=== PATIENT | female | born 1965 | race Caucasian/White ===

== ENCOUNTER → 2017-06-15 | Outpatient (CLI) | payer MEDICAID ==
[~2017-06-15] MED LIST: NAPR375T PO; [UNRECOGNIZED DRUG - REMARK]
== END | disposition home or self-care (01) ==
LOC: CVU 15:20
PROVIDERS: ATTEND Internal Medicine Cardiovascular Disease
DX: I51.7 Cardiomegaly (principal)
CPT/HCPCS: 93306

== ENCOUNTER → 2018-04-23 | Outpatient (CLI) | payer MEDICARE, MEDICAID ==
[~2018-04-23] MED LIST changes: +AMIT25TA PO; +FLUT1BLS3 INH; +FURO40TA6 PO; +GABA300C10 PO; +LEVA15HF4 INH; +LEVO150T5 PO; +LOSA50TA6 PO; +Oxygen; +ROPI3TAB2 PO; +SPIR25TA5 PO; +TIZA2TAB PO; +Vita Fusion PO
[2018-04-23 16:05] LABS: BASOPHILS # (AUTO) 0.09 x10^3/uL (0-0.1); BASOPHILS % (AUTO) 1 % (0-1); EOSINOPHILS # (AUTO) 0.09 x10^3/uL (0-0.4); EOSINOPHILS % (AUTO) 1 % (1-7); LYMPHOCYTES # (AUTO) 2.75 x10^3/uL (1-3.4); LYMPHOCYTES % (AUTO) 23 % (22-44); MD NO; MEAN CORPUSCULAR HEMOGLOBIN 29.5 pg (27.0-34.8); MEAN CORPUSCULAR HGB CONC 33.1 g/dL (32.4-35.8); MEAN CORPUSCULAR VOLUME 88.9 fL (80-100); MEAN PLATELET VOLUME 8.9 fL (7.4-10.4); MONOCYTES # (AUTO) 0.56 x10^3/uL (0.2-0.8); MONOCYTES % (AUTO) 5 % (2-9); NEUTROPHILS # (AUTO) 8.59 x10^3/uL (1.8-6.8); NEUTROPHILS % (AUTO) 71 % (42-75); PLATELET COUNT 300 x10^3/uL (130-400); RED CELL DISTRIBUTION WIDTH 15.7 % (9.6-15.2)
[2018-04-23 16:13] LABS: ANION GAP 7 mmol/L (5-15); CHLORIDE 104 mmol/L (98-107)
[2018-04-23 16:14] LABS: ALANINE AMINOTRANSFERASE 52 U/L (12-78); ALBUMIN 3.6 g/dL (3.4-5.0); CALCIUM 9.8 mg/dL (8.5-10.1); CREATININE 0.93 mg/dL (0.55-1.02); INTERNATIONAL NORMALIZED RATIO 1.09 (0.93-1.1); PROTHROMBIN TIME 11.2 Seconds (9.6-11.5)
[2018-04-23 16:16] LABS: ALKALINE PHOSPHATASE 91 U/L (45-117); BILIRUBIN,TOTAL 0.5 mg/dL (0.2-1.0); TOTAL PROTEIN 8.3 g/dL (6.4-8.2)
== END | disposition home or self-care (01) ==
LOC: STAR 14:47
PROVIDERS: ATTEND Surgery
DX: Z01.818 Encounter for other preprocedural examination (principal)
CPT/HCPCS: 36415; 71046; 80053; 85025; 85610; 93005

== ENCOUNTER 2018-04-27 12:17 | Inpatient (IN) | payer MEDICARE, MEDICAID ==
[~2018-04-27] VITALS: Ht 160 cm; Wt 162.3 kg
[2018-04-27 13:18] VITALS: BP 136/83
[2018-04-27] MEDS ORDERED: LACTATED RINGERS 1,000 ML IV SCH (13:27)
[2018-04-27] MEDS ORDERED: ACETAMINOPHEN 500 MG TABLET PO ONE (13:30)
[2018-04-27] MEDS ORDERED: GABAPENTIN 300 MG CAPSULE PO ONE (13:30)
[2018-04-27] MEDS ORDERED: MIDAZOLAM 1 MG/ML, 2ML ONE (13:52)
[2018-04-27] MEDS ORDERED: FENTANYL PF 100 MCG/2ML ONE ×4 (13:52→16:46)
[2018-04-27] MEDS ORDERED: PROPOFOL 10 MG/ML, 20ML ONE (13:55)
[2018-04-27] MEDS ORDERED: NEOSTIGMINE 1 MG/ML, 10ML ONE (13:55)
[2018-04-27] MEDS ORDERED: ROCURONIUM 10MG/ML,5ML ONE (13:55)
[2018-04-27] MEDS ORDERED: GLYCOPYRROLATE 0.4 MG/2 ML, 2ML ONE (13:56)
[2018-04-27] MEDS ORDERED: CEFAZOLIN 1,000 MG ONE ×3 (13:57)
[2018-04-27] MEDS ORDERED: DEXAMETHASONE 4 MG/ML, 1ML ONE ×2 (13:58)
[2018-04-27] MEDS ORDERED: ONDANSETRON ODT 8 MG PO ONE (14:00)
[2018-04-27] MEDS ORDERED: OxyconTIN ER 10 MG TAB.ER PO ONE (14:00)
[2018-04-27] MEDS ORDERED: SCOPOLAMINE PATCH, 1.5MG PATCH.TD72 TD ONE (14:00)
[2018-04-27] MEDS ORDERED: BUPIVACAINE/PF 0.5% ONE (14:12)
[2018-04-27] MEDS ORDERED: METHYLENE BLUE 10 MG/ML 10ML ONE (14:13)
[2018-04-27] MEDS ORDERED: EPINEPHRINE 1 MG/ML, 1ML ONE (14:13)
[2018-04-27] MEDS ORDERED: FENTANYL PF 100 MCG/2ML IV PRN (14:30)
[2018-04-27] MEDS ORDERED: ONDANSETRON 2MG/ML, 2ML IV PRN (14:30)
[2018-04-27] MEDS ORDERED: MEPERIDINE/PF 25MG/0.5ML IVPush PRN (14:30)
[2018-04-27] MEDS ORDERED: LABETALOL 5MG/ML, 20ML IV PRN (14:30)
[2018-04-27] MEDS ORDERED: PROMETHAZINE 25 MG/ML, 1ML IV PRN (14:30)
[2018-04-27] MEDS ORDERED: ONDANSETRON ODT 8 MG PO PRN (14:30)
[2018-04-27] MEDS ORDERED: PROMETHAZINE 25 MG SUPP PR PRN (14:30)
[2018-04-27] MEDS ORDERED: OXYcodone 5 MG/5 ML ORAL.SOL UDC PO PRN (14:30)
[2018-04-27] MEDS ORDERED: ALBUTEROL SULFATE 2.5 MG/3 ML NPPB PRN ×2 (14:30→20:00)
[2018-04-27] MEDS ORDERED: hydrALAzine 20 MG/ML, 1ML IV PRN (14:30)
[2018-04-27] MEDS ORDERED: HYDROmorphone 1 MG/ML, 1ML IV PRN (14:30)
[2018-04-27] MEDS ORDERED: PROMETHAZINE 12.5 MG SUPP PR PRN (14:30)
[2018-04-27] MEDS ORDERED: BUPIVACAINE/EPI 0.5% 1:200K INFIL ONE (15:25)
[2018-04-27] MEDS ORDERED: EPINEPHRINE 1 MG/ML, 1ML INFIL ONE (15:26)
[2018-04-27] MEDS: POTASSIUM CHLORIDE 20 MEQ in LACTATED RINGERS 1,000 ML IV SCH (15:55)
[2018-04-27] MEDS ORDERED: HYDROmorphone PCA 30 MG/30 ML IV PRN (16:00)
[2018-04-27] MEDS ORDERED: ONDANSETRON 2MG/ML, 2ML IVPush PRN (16:00)
[2018-04-27] MEDS ORDERED: DIPHENHYDRAMINE 50 MG/ML, 1ML IV PRN (16:00)
[2018-04-27] MEDS ORDERED: OXYcodone 5 MG/5 ML ORAL.SOL UDC ONE (16:47)
[2018-04-27] MEDS ORDERED: TEMPLATE NON-FORMULARY MED. (Levalbuterol Tartrate** (Xopenex Hfa**) 1 PUFF) INH SCH (19:30)
[2018-04-27 19:31] VITALS: BP 123/71
[2018-04-27] MEDS: HYDROmorphone 2 MG/ML, 1ML IVPush PRN (20:08)
[2018-04-27] MEDS: AMITRIPTYLINE 25 MG TABLET PO SCH (20:08)
[2018-04-28 00:18] VITALS: BP 106/65
[2018-04-28] MEDS: HYDROmorphone 2 MG/ML, 1ML IVPush PRN ×6 (02:25→23:58)
[2018-04-28] MEDS: POTASSIUM CHLORIDE 20 MEQ in LACTATED RINGERS 1,000 ML IV SCH (02:25)
[2018-04-28 04:17] VITALS: BP 118/67
[2018-04-28 05:47] LABS: ALBUMIN 3.2 g/dL (3.4-5.0); ANION GAP 5 mmol/L (5-15); CALCIUM 9.3 mg/dL (8.5-10.1); CHLORIDE 106 mmol/L (98-107)
[2018-04-28 05:50] LABS: BASOPHILS # (AUTO) 0.01 x10^3/uL (0-0.1); BASOPHILS % (AUTO) 0 % (0-1); EOSINOPHILS % (AUTO) 0 % (1-7); LYMPHOCYTES # (AUTO) 1.44 x10^3/uL (1-3.4); LYMPHOCYTES % (AUTO) 11 % (22-44); MD NO; MEAN CORPUSCULAR HEMOGLOBIN 29.9 pg (27.0-34.8); MEAN CORPUSCULAR HGB CONC 33.1 g/dL (32.4-35.8); MEAN CORPUSCULAR VOLUME 90.2 fL (80-100); MEAN PLATELET VOLUME 9.6 fL (7.4-10.4); MONOCYTES # (AUTO) 0.41 x10^3/uL (0.2-0.8); MONOCYTES % (AUTO) 3 % (2-9); NEUTROPHILS # (AUTO) 11.18 x10^3/uL (1.8-6.8); NEUTROPHILS % (AUTO) 86 % (42-75); PLATELET COUNT 288 x10^3/uL (130-400); RED BLOOD COUNT 4.37 x10^6/uL (3.82-5.3); RED CELL DISTRIBUTION WIDTH 15.7 % (9.6-15.2)
[2018-04-28 05:52] LABS: ALANINE AMINOTRANSFERASE 96 U/L (12-78); ALKALINE PHOSPHATASE 88 U/L (45-117); BILIRUBIN,TOTAL 0.6 mg/dL (0.2-1.0); CREATININE 0.87 mg/dL (0.55-1.02); TOTAL PROTEIN 7.9 g/dL (6.4-8.2)
[2018-04-28] MEDS: ALBUTEROL/IPRATROPIUM 2.5MG/0.5MG, 3 ML NPPB SCH ×2 (07:00→11:50)
[2018-04-28 07:10] VITALS: BP 114/69
[2018-04-28] MEDS: FAMOTIDINE 20 MG/2 ML IVPush SCH (08:55)
[2018-04-28] MEDS: SPIRONOLACTONE 25 MG TABLET PO SCH (08:56)
[2018-04-28] MEDS: LOSARTAN 50MG TABLET PO SCH (08:56)
[2018-04-28] MEDS: GABAPENTIN 300 MG CAPSULE PO SCH (08:56)
[2018-04-28] MEDS: FUROSEMIDE 40 MG TABLET PO SCH (08:57)
[2018-04-28] MEDS: LACTATED RINGERS 1,000 ML IV SCH ×2 (10:03→17:10)
[2018-04-28] MEDS: LEVOTHYROXINE 150 MCG TABLET PO SCH (10:03)
[2018-04-28] MEDS: ROPINIROLE 1MG TABLET PO SCH (13:06)
[2018-04-28 14:00] VITALS: BP 136/84
[2018-04-28] MEDS: ENOXAPARIN 40 MG/0.4 ML SQ SCH (17:10)
[2018-04-28 19:06] VITALS: BP 111/72
[2018-04-28] MEDS: AMITRIPTYLINE 25 MG TABLET PO SCH (20:25)
[2018-04-29 01:10] VITALS: BP 103/60
[2018-04-29] MEDS: LACTATED RINGERS 1,000 ML IV SCH (01:11)
[2018-04-29] MEDS: HYDROmorphone 2 MG/ML, 1ML IVPush PRN (04:58)
[2018-04-29] MEDS: ENOXAPARIN 40 MG/0.4 ML SQ SCH (04:58)
[2018-04-29 07:23] VITALS: BP 109/68
[2018-04-29] MEDS: ROPINIROLE 1MG TABLET PO SCH (07:46)
[2018-04-29] MEDS: FUROSEMIDE 40 MG TABLET PO SCH (07:46)
[2018-04-29] MEDS: LEVOTHYROXINE 150 MCG TABLET PO SCH (07:46)
[2018-04-29] MEDS: LOSARTAN 50MG TABLET PO SCH (07:47)
[2018-04-29] MEDS: SPIRONOLACTONE 25 MG TABLET PO SCH (07:47)
[2018-04-29] MEDS: FAMOTIDINE 20 MG/2 ML IVPush SCH (07:47)
[2018-04-29] MEDS: GABAPENTIN 300 MG CAPSULE PO SCH (07:47)
[2018-04-29] MEDS ORDERED: OXYcodone 5 MG/5 ML ORAL.SOL UDC ONE (11:26)
[2018-04-29] MEDS ORDERED: OXYcodone ORAL.CONC 20 MG/ML PO PRN (11:30)
== END 2018-04-29 13:06 | disposition home or self-care (01) | DRG 421 ==
LOC: OUT 12:17 → ORIP 15:55 → 4NOR 18:26
PROVIDERS: ADMIT Surgery; ATTEND Surgery
PROC: 0DB64Z3 Excision of Stomach, Percutaneous Endoscopic Approach, Vertical (ICD-10-PCS; 2018-04-27)
PROC: 0FB04ZX Excision of Liver, Percutaneous Endoscopic Approach, Diagnostic (ICD-10-PCS; principal; 2018-04-27 14:30)
PROC: 5A09357 Assistance with Respiratory Ventilation, Less than 24 Consecutive Hours, Continuous Positive Airway Pressure (ICD-10-PCS; 2018-04-29)
DX: K76.0 Fatty (change of) liver, not elsewhere classified (principal); Z68.44 Body mass index [BMI] 60.0-69.9, adult; E66.01 Morbid (severe) obesity due to excess calories; E03.9 Hypothyroidism, unspecified; G25.81 Restless legs syndrome; I10 Essential (primary) hypertension; G47.33 Obstructive sleep apnea (adult) (pediatric); J44.9 Chronic obstructive pulmonary disease, unspecified; G47.00 Insomnia, unspecified; K66.8 Other specified disorders of peritoneum; Z87.891 Personal history of nicotine dependence; Z90.710 Acquired absence of both cervix and uterus; Z99.81 Dependence on supplemental oxygen; Z90.49 Acquired absence of other specified parts of digestive tract
CPT/HCPCS: 36415; 80053; 85025; 88307; 88313; 88342; C1729; J0171; J0690; J1100; J1170; J1650; J2250; J2405; J2704; J2710; J3010; J3480; J3490; Q0162; C1760; G0461; J7120; Q9968; S0028

== ENCOUNTER 2018-09-16 02:30 | Emergency (ER) | payer MEDICARE, MEDICAID ==
[~2018-09-16] VITALS: Ht 160 cm; Wt 136.9 kg
[~2018-09-16 02:30] MED LIST changes: -LOSA50TA6 PO; +LOSA50TA7 PO; -ROPI3TAB2 PO; +ROPI3TAB4 PO
[2018-09-16 02:32] VITALS: BP 123/70
[2018-09-16] MEDS ORDERED: ACETAMINOPHEN 500 MG TABLET PO ONE (03:00)
== END 2018-09-16 04:18 | disposition home or self-care (01) ==
LOC: ED 03:14
DX: S60.222A Contusion of left hand, initial encounter (principal); X58.XXXA Exposure to other specified factors, initial encounter; Y93.89 Activity, other specified; Y92.009 Unspecified place in unspecified non-institutional (private) residence as the place of occurrence of the external cause; Y99.8 Other external cause status
CPT/HCPCS: 99283

== ENCOUNTER 2018-09-27 14:21 | Outpatient (CLI) | payer MEDICARE, MEDICAID ==
[~2018-09-27 14:21] MED LIST changes: +LOSA50TA14 PO; -LOSA50TA7 PO
[2018-09-27] MEDS ORDERED: FLUT1BLS3 INH (14:56)
[2018-09-27] MEDS ORDERED: ALBU8.5H8 INH (14:56)
== END 2018-09-27 23:59 | disposition home or self-care (01) ==
LOC: STAR 14:21
PROVIDERS: ATTEND Plastic Surgery
DX: Z01.818 Encounter for other preprocedural examination (principal); R22.0 Localized swelling, mass and lump, head
CPT/HCPCS: 93005

== ENCOUNTER 2018-10-01 05:20 | Day surgery (SDC) | payer MEDICARE, MEDICAID ==
[2018-09-27 14:57] VITALS: BP 101/67
[~2018-10-01] VITALS: Ht 160 cm; Wt 136.6 kg
[~2018-10-01 05:20] MED LIST changes: +ALBU8.5H8 INH; -LOSA50TA14 PO; +LOSA50TA7 PO
[2018-10-01] MEDS ORDERED: LACTATED RINGERS 1,000 ML IV SCH (06:02)
[2018-10-01 06:07] VITALS: BP 101/67
[2018-10-01] MEDS ORDERED: BUPIVACAINE/PF 0.5% ONE (06:15)
[2018-10-01] MEDS ORDERED: BUPIVACAINE/PF-EPI 0.5% 1:200K ONE (06:15)
[2018-10-01] MEDS ORDERED: MIDAZOLAM 1 MG/ML, 2ML ONE (06:28)
[2018-10-01] MEDS ORDERED: FENTANYL PF 250 MCG/5ML ONE (06:28)
[2018-10-01] MEDS ORDERED: ONDANSETRON 2MG/ML, 2ML ONE (06:54)
[2018-10-01] MEDS ORDERED: CEFAZOLIN 1,000 MG ONE (06:54)
[2018-10-01] MEDS ORDERED: PROPOFOL 10 MG/ML, 20ML ONE (06:54)
[2018-10-01] MEDS ORDERED: ROCURONIUM 10MG/ML,5ML ONE (06:54)
[2018-10-01] MEDS ORDERED: SUCCINYLCHOLINE 20 MG/ML, 10ML ONE (06:54)
[2018-10-01] MEDS ORDERED: NEOSPORIN OINT, 15GM ONE (07:21)
[2018-10-01] MEDS ORDERED: SUGAMMADEX 200 MG/2 ML IVPush ONE (07:21)
[2018-10-01] MEDS ORDERED: PROMETHAZINE 25 MG/ML, 1ML IV PRN (07:30)
[2018-10-01] MEDS ORDERED: FENTANYL PF 100 MCG/2ML IV PRN (07:30)
[2018-10-01] MEDS ORDERED: hydrALAzine 20 MG/ML, 1ML IV PRN (07:30)
[2018-10-01] MEDS ORDERED: KETOROLAC 30 MG/1 ML IV PRN (07:30)
[2018-10-01] MEDS ORDERED: MEPERIDINE/PF 25MG/0.5ML IVPush PRN (07:30)
[2018-10-01] MEDS ORDERED: LABETALOL 5MG/ML, 20ML IV PRN (07:30)
[2018-10-01] MEDS ORDERED: METOCLOPRAMIDE 5 MG/ML, 2ML IV PRN (07:30)
[2018-10-01] MEDS ORDERED: OXYcodone 5 MG/5 ML ORAL.SOL UDC PO PRN (07:30)
[2018-10-01] MEDS ORDERED: ONDANSETRON 2MG/ML, 2ML IVPush PRN (07:30)
[2018-10-01] MEDS ORDERED: ALBUTEROL SULFATE 2.5 MG/3 ML NPPB PRN (07:30)
[2018-10-01] MEDS ORDERED: HYDROmorphone 1 MG/ML, 1ML IV PRN (07:30)
[2018-10-01] MEDS ORDERED: OXYcodone 5 MG/5 ML ORAL.SOL UDC ONE (07:53)
== END 2018-10-01 09:03 | disposition home or self-care (01) ==
LOC: OUT 05:20
PROVIDERS: ATTEND Plastic Surgery
DX: M79.89 Other specified soft tissue disorders (principal); F41.9 Anxiety disorder, unspecified; J44.9 Chronic obstructive pulmonary disease, unspecified; L72.8 Other follicular cysts of the skin and subcutaneous tissue
CPT/HCPCS: 21012; 88307; J0330; J0690; J2250; J2405; J2704; J3010; J7120; J3490